=== PATIENT | male | born 1960 | race Caucasian/White ===

== ENCOUNTER 2017-01-14 10:24 | Observation (INO) | payer OTHER ==
[~2017-01-14] VITALS: Ht 180.3 cm; Wt 114.7 kg
[~2017-01-14 10:24] MED LIST: ACCOLATE20 MG PO; ADVAIR 250/501 DISK IH; AMOXICILLIN500 MG PO; ASPIR 8181 M1 PO; ASPIRIN81 M2 PO; B-121000 MC2 PO; BACTRIM,SEPT1 TABLET PO; BUPROPION XL300 MG PO; BUSPAR10 MG PO; CALCIUM 600 +1 EAC1 PO; CARDIZEM CD120 MG PO; CATAPRES0.1 MG PO; CATAPRES0.2 MG; CLEOCIN300 MG PO; CLOBETASOL PROP50 ML TP; CLONAZEPAM1 MG PO; CLONIDINE HCL0.1 MG PO; CLONIDINE HCL0.2 MG PO; COZAAR25 MG PO; CYANOCOBALAM1000 MCG PO; DILTIAZEM 24HR120 MG PO; DOLOPHINE HCL5 MG PO; ECONAZOLE NITRA15 GM TP; ENULOSE10 GM/15 M PO; FLONASE16 G1 BOTH NARES; FUROSEMIDE40 MG PO; GLIPIZIDE5 MG PO; GLUCOTROL10 MG PO; HARVONI 90-4001 EACH PO; HUMALOG (UNIT)1 UNIT IV; INDERAL LA120 MG PO; INDERAL80 MG PO; JANUMET 50/11 TABLET PO; K-DUR20 MEQ PO; LANTUS (UNITS)1 UNIT IV; LASIX20 MG PO; LASIX40 MG PO; LASIX80 MG PO; LEVOTHROID,S0.125 MG PO; LIDEX 0.05% CRE60 GM TP; LO-DOSE ASPIRIN81 M1 PO; LOTENSIN40 MG PO; LOVAZA1 GM PO; METFORMIN HCL1000 M1 PO; NEXIUM40 MG PO; NORCO 5/3251 TABLET PO; NORVASC5 MG PO; ONCE DAILY1 EACH PO; OXAYDO5 MG PO; OXYCODONE HCL5 MG PO; PEN-VEE K,VEET500 MG PO; PROTONIX40 MG PO; PROVENTIL HFA6.7 GM IH; PROVENTIL,2.5 MG/0.5 IH; PROVENTIL,2.5 MG/3 M IH; PROVENTIL2.5 MG/3 M IH; REGLAN10 M1 PO; REMERON30 MG PO; ROXICODONE5 MG PO; SPIRIVA RESPIMAT4 G1 IH; SPIRIVA1 INHALATI IH; SYNTHROID137 MCG PO; TRAMADOL HCL50 MG PO; VENTOLIN HFA18 GM IH; VYTORIN 10-401 EACH PO; WELLBUTRIN XL300 MG PO; ZOFRAN ODT4 MG PO
[2017-01-14 11:28] LABS: HEMATOCRIT 37.7 % (38.0-50.0); MCH 34.1 PG (29.0-34.0); MCHC 36.3 G/DL (30.0-36.0); MCV 93.8 FL (86-99); MEAN PLAT.VOLUME 9.7 uM^3 (9.0-12.4); PLATELET COUNT 185 K/uL (156-360); RBC DIS.WIDTH-CV 13.7 % (11.8-14.6); RBC DIS.WIDTH-SD 47.1 % (39-53); RED BLOOD COUNT 4.02 M/uL (4.00-5.50); WHITE BLOOD COUNT 11.1 K/uL (4.1-10.2)
[2017-01-14 11:39] LABS: CHLORIDE 101 mEq/L (99-109); POTASSIUM 4.8 mEq/L (3.7-5.4); SODIUM 135 mEq/L (136-147)
[2017-01-14 11:40] LABS: GLUCOSE 106 mg/dL (70-99)
[2017-01-14 11:42] LABS: ANION GAP 13 MEQ/L (2-14)
[2017-01-14 11:44] LABS: GFR ESTIMATE (CALCULATED) > 59 mL/min/
[2017-01-14 11:45] LABS: UREA NITROGEN (BUN) 17 mg/dL (9-23)
[2017-01-14 11:53] LABS: TROP-I INTERPRETATION NEGATIVE; TROPONIN-I < 0.01 ng/mL (0.0-0.30)
[2017-01-14 12:59] LABS: MAGNESIUM 1.3 mg/dL (1.3-2.7)
[2017-01-14] MEDS ORDERED: PROVENTIL,2.5 MG/3 M IH (13:22)
[2017-01-14] MEDS ORDERED: VITAMIN B-12 51 EACH SL (13:27)
[2017-01-14] MEDS ORDERED: COZAAR100 MG PO (13:28)
[2017-01-14] MEDS ORDERED: SPIRONOLACTONE50 MG PO (13:30)
[2017-01-14] MEDS ORDERED: BYETTA10 MCG/0.0 SC (13:30)
[2017-01-14] MEDS ORDERED: BUMETANIDE1 MG PO (13:30)
[2017-01-14] MEDS ORDERED: BREO ELLIPTA 21 EACH IH (13:31)
[2017-01-14] MEDS ORDERED: VENTOLIN HFA18 GM IH (13:34)
[2017-01-14 14:06] LABS: Estimated Average Glucose 111 mg/dL (70-123); HEMOGLOBIN A1c (GLYCOHEMOGLOB) 5.5 % HGB (Below 5.7)
[2017-01-14 15:31] VITALS: BP 146/84
[2017-01-14 17:15] LABS: POINT-OF-CARE METER ID UU13113831
[2017-01-14 19:07] LABS: TROP-I INTERPRETATION NEGATIVE; TROPONIN-I < 0.01 ng/mL (0.0-0.30)
[2017-01-14 21:00] VITALS: BP 128/82
[2017-01-14 21:33] LABS: POINT-OF-CARE METER ID UU14162513
[2017-01-14 23:51] VITALS: BP 139/70
[2017-01-15 00:52] LABS: TROP-I INTERPRETATION NEGATIVE; TROPONIN-I < 0.01 ng/mL (0.0-0.30)
[2017-01-15 04:02] VITALS: BP 127/83
[2017-01-15 07:15] VITALS: BP 140/72
[2017-01-15] MEDS ORDERED: XARELTO1 EACH PO (09:06)
== END 2017-01-15 09:14 | disposition home or self-care (01) ==
LOC: EME 10:24 → EDOF 12:16 → 5WEST 15:26
PROVIDERS: Emergency Medicine; Hospitalist; Internal Medicine
DX: I48.0 Paroxysmal atrial fibrillation (principal); R55 Syncope and collapse; R07.9 Chest pain, unspecified; E11.649 Type 2 diabetes mellitus with hypoglycemia without coma; I10 Essential (primary) hypertension; K21.9 Gastro-esophageal reflux disease without esophagitis; J44.9 Chronic obstructive pulmonary disease, unspecified; K74.60 Unspecified cirrhosis of liver; Z87.891 Personal history of nicotine dependence; Z82.49 Family history of ischemic heart disease and other diseases of the circulatory system; Z83.3 Family history of diabetes mellitus; Z88.8 Allergy status to other drugs, medicaments and biological substances; L30.9 Dermatitis, unspecified
CPT/HCPCS: 71010; 80048; 82948; 83036; 83735; 84443; 84484; 85027; 93005; 93306; 94640; 99202; 99281; 99285; G0378; J1650; J7030